=== PATIENT | male | born 1930 | race Caucasian/White ===

== ENCOUNTER 2016-12-23 07:27 | Inpatient (IN) ==
[2016-12-23] MEDS ORDERED: DIPH/TET/ACEL PERT BOOSTER VACCINE 0.5 ML VIAL IM ONE ×2 (07:57→08:20)
[2016-12-23] MEDS ORDERED: SODIUM CHLORIDE 0.9% 500 ML IV STA (07:57)
--- NOTE | 2016-12-23 08:04 | EKG Report ---
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
--- NOTE | 2016-12-23 08:07 | Emergency Department Note ---
Malik Kong Brittany, am scribing for, and in the presence of, Ha Langley MD 07: 59. Korin Kong James D, MD, personally performed the services described in this documentation, ascribed by Tasha Gan in my presence, and it is both accurate and complete 806 . Arrival - Arrival Chief Complaint: Fall Stated Complaint: vomiting,weakness on left side,fell ED Nursing Triage Note: pt's son found him in the floor at 0500 this morning. Pt reports being dizzy before falling. Denies LOC. Skin tear to right elbow. Pt is nauseated but has not been able to vomit. Pt noted to be leaning to right side but using right extremities dominately. Mode of Arrival: Wheelchair Limitations: No Limitations Source: Patient, Family Time Seen by Provider: 12/23/16 07:48 - History of Present Illness HPI Narrative: This is an 86 y/o white male, who presents to the ED S/P fall which happened at 0100 this morning. He states he got up during the night to go to the bathroom and fell. His son reports he found the pt at 0530 this morning. Pt denies hitting his head or LOC. He complains of hip and leg pain. He denies any chest pain, shoulder pain or dyspnea. Pt has no other complaints/pain in the ED at this time. Pt has a PMHx of diabetes. Pt has had a right coronary artery surgery. Pt denies a family medical Hx. Pt denies a social Hx. Consistency: constant Severity: moderate Allergies/Adverse Reactions: Allergies Allergy/AdvReac Type Severity Reaction Status Date / Time No Known Allergies Allergy Verified 12/23/16 07:52 Home Medications: Home Medications Medication Instructions Recorded Confirmed Type Insulin Glargine,Hum.rec.anlog 12/23/16 History [Lantus SoloStar] Verapamil HCl [Verapamil ER Tab] 240 mg PO DAILY 12/23/16 12/23/16 History glipiZIDE [Glipizide] 5 mg PO DAILY 12/23/16 12/23/16 History Review of System - Review of System 12 point system: reviewed and no additional remarkable complaints except as stated - Review of System Cardiovascular: Absent: chest pain, dyspnea on exertion, syncope Musculoskeletal: Present: leg pain (Bilateral leg pain ), other (Bilateral Hip pain ) Medical,Surgical,& Family Hx - Medical History Cardio: History of: Hypertension Endocrine: History of: Diabetes Mellitus (NIDDM) - Social History Smoking Status: Never smoker Frequency of Alcohol Use: None Type of Drug Use: None Exam Vital Signs: Vital Signs Temperature 97.2 F L 12/23/16 08:00 Pulse Rate 80 12/23/16 09:01 Respiratory Rate 13 12/23/16 09:01 Blood Pressure 194/92 12/23/16 09:01 O2 Sat by Pulse Oximetry 98 12/23/16 09:01 GENERAL: This is a well-nourished well-developed white male in no apparent distress. VITAL SIGNS: Reviewed HEENT: Head is atraumatic and normocephalic. Pupils are equal round react to light. Extraocular movements are intact. Oropharynx is benign with moist mucous membranes. NECK: Neck is soft and supple without tenderness. There are no masses. There is no lymphadenopathy. LUNGS: Lungs are clear to auscultation. Chest rises symmetrically. There is no chest wall tenderness. CV: Heart is regular rate and rhythm without murmurs rubs or gallops. ABDOMEN: Abdomen is soft, nontender to palpation. There are no abdominal abnormal masses palpated. There is no organomegaly. Bowel sounds are present and active. SKIN: Skin is warm and dry. No rash. EXTREMITIES: Patient has full range of motion without tenderness. There is no pedal edema. Abrasion of the right elbow. NEUROLOGIC: Awake alert and oriented 4 per Cranial nerves II through XII are grossly intact. Motor is 5 over 5 in all extremities bilaterally. Course Course Narrative: Patient unable to stand or ambulate. - Consultations Consultation #1: Discussed with hospitalist. Patient will be admitted to their service. Time: 10:00 Results - Labs CBC & BMP: 12/23/16 07:56 12/23/16 07:56 Lab Results: I have reviewed the patients labs Labs: Laboratory Tests 12/23/16 07:56 Troponin I < 0.015 - EKG EKG results: interpreted by ERMD - Impressions EKG: Normal sinus rhythm with a rate of 89, right bundle branch block, nonspecific ST-T wave changes. - Diagnostic Findings Procedure: Chest x-ray: image reviewed by me (Elevated left hemidiaphragm.), CT : image reviewed by me (CT head: No acute intracranial lesion or hemorrhage.) Disposition Clinical Impression: Fall, Carotid artery disease Case discussed with: patient, patient's family Disposition: Disch To Home/Self Care Condition: Stable Additional Instructions: Patient is to follow-up with his primary care provider in the next 4-5 days for recheck or sooner with any worsening of symptoms. Patient may return to the emergency department any worsening of symptoms. Time of Disposition: 09:29
[2016-12-23 08:14] LABS: Basophils # 0.1 10*3/uL (0.0-0.2); Basophils % 0.3 % (0.0-0.8); Eosinophils % 0.1 % (0.00-10.9); Hematocrit 36.5 VOL% (42.0-52.0); Hemoglobin 12.1 GM/DL (14.0-18.0); Immature Granulocytes % 0.7 %; Immature Granulocytes Absolute 0.12 #; Lymphocytes % 5.5 % (21.2-54.2); Mean Corpuscular HGB Conc 33.2 GM/DL (32-36); Mean Corpuscular Hemoglobin 33 PG (27-34); Mean Corpuscular Volume 99.7 FL (87-102); Mean Platelet Volume 10.2 FL (9.6-12.0); Monocytes # 0.8 10*3/uL (0.11-0.8); Monocytes % 4.5 % (1.7-12.7); Neutrophils # 15.4 10*3/uL (1.4-7.4); Neutrophils % 88.9 % (38.7-73.9); Platelet Count 279 T/CUMM (130-400); Red Blood Count 3.66 MC/CUMM (3.8-5.5); Red Cell Distribution Width 13.4 % (9.3-17.3); White Blood Count 17.3 T/CUMM (4-12)
--- NOTE | 2016-12-23 08:21 | XRay Report ---
Exam: XR chest 1V portable Date: 12/23/2016 7:57 AM Indication: Shortness of breath Comparison: 10/26/2013 Technical: AP portable Findings: Atelectatic change present and/or infiltrate in the basilar regions bilaterally with chronic elevation left hemidiaphragm. Mild cardiomegaly. Calcified nodes are present in the perihilar regions. ASVD is present. Small granuloma in the left apex. Surgical clips are present in the right thyroid bed. External cardiac leads are present. ASVD present. Lateral marginal osteophytes are noted. Impression: 1. Bibasilar atelectatic change and/or infiltrates with chronic elevation left hemidiaphragm similar to previous study 2. Calcified nodes 3. No pneumothorax. PROCEDURE INTERPRETED AT [facility] DEPARTMENT OF RADIOLOGY Final Report Signed by: Dr. Harry Ellison
--- NOTE | 2016-12-23 08:21 | CT Report ---
Referring physician: Ha Langley Exam: CT brain without contrast Date: 12/23/2016 Comparison: 10/26/2013 Reason: Fall, head injury, left side weakness Technique: Axial images of the head were obtained without the use of contrast. Total DLP was 1073.10 mGy*cm. Findings: No hydrocephalus or midline shift is present. There is no evidence of an acute infarction, recent intracranial hemorrhage or abnormal mass effect. Diffuse atrophy and cerebral hypodensities with chronic left basal ganglia and right frontal chronic lacunar infarcts. Arterial calcifications are noted. The osseous structures appear intact. The mastoid air cells and visualized paranasal sinuses are clear. Impression: No acute intracranial abnormality is identified. Persistent atrophy, microvascular disease, and chronic infarcts. The CT exam was performed using one or more of the following dose reduction techniques: Automated exposure control and adjustment of the mA and/or kV according to patient size. PROCEDURE INTERPRETED AT [facility] DEPARTMENT OF RADIOLOGY Final Report Signed by: Dr. Chikis Barreto
[2016-12-23 08:46] LABS: Albumin 4.1 G/DL (3.4-5.0); Bilirubin,Total 0.5 MG/DL (0.2-1.0); Calcium 9.2 MG/DL (8.5-10.1); Osmolality,Calculated 286.4 MOS/KG (273-304); Potassium 3.9 MMOL/L (3.5-5.1)
[2016-12-23] MEDS ORDERED: ONDANSETRON 4 MG/2 ML VIAL IV STA (10:48)
[2016-12-23] MEDS ORDERED: ONDANSETRON 4 MG/2 ML VIAL ONE (10:50)
--- NOTE | 2016-12-23 11:05 | Hospitalist History & Physical ---
Assessment and Plan - Time spent with patient Time spent with patient: Greater than 30 minutes (1) Right sided weakness Status: Acute Assessment and plan: Mr. Giraldo is an 86-year-old white male with history of diabetes, hypertension, carotid artery disease, and colon cancer admitted by hospitalist service with right-sided weakness. Patient will undergo stroke workup and be evaluated by rehab. Will restart his home medicines for his diabetes and hypertension and continue to monitor these. Dr. Griffith we will see and examine patient and further recommendations to follow. Current Visit: Yes (2) Leukocytosis Status: Acute Current Visit: Yes (3) Carotid artery disease Status: Acute Current Visit: Yes (4) Diabetes Status: Acute Current Visit: Yes (5) Hypertension Status: Acute Current Visit: Yes History of Present Illness Chief complaint: right sided weakness History of present illness: Mr. Giraldo is a 86 year old male w history of right CEA 2-[address] pompa , colon cancer status post resection by Dr. Lujan, htn and dm presenting to the ED w his son w right sided weakness. Patient states he sat on the edge of the bed last night to use the restroom around 1 AM. He states while he was peeing in the urinal he listed to the right side and fell out of the bed. He states he stayed on the floor all night until his son found him at 0530 this morning. Patient complains of right sided leg and arm weakness and blurry vision. Patient states the vision now has returned to normal. Patient denies headache, dysphagia, chest pain, shortness of breath, abdominal pain, or lower extremity edema. Patient has minimal right-sided weakness on manual muscle testing. He does have trouble tracking especially with the left eye. Patient has elevated blood pressure in the ED with current reading 194/92. Patient did not take his medicines this morning. He does have a white blood cell count of 17.3 with no complaints of cough or dysuria. Blood sugars are 209. CT of the head shows no acute intracranial abnormality with persistent atrophy, microvascular disease, and chronic infarcts. Patient was going to be discharged home from the ED but when he went to get up he could not put weight on the right side and almost fell. After discussion with the ED physician Dr. Langley and Dr. Griffith the admitting hospitalist, it was agreed patient would be admitted for further evaluation. Home Medications Medication Instructions Recorded Confirmed Type Insulin Glargine,Hum.rec.anlog 10 units SUBCUT BEDTIME 12/23/16 12/23/16 History [Lantus SoloStar] Multivitamin (Centrum) [Centrum 1 tablet PO DAILY 12/23/16 12/23/16 History Tab] [place]-3 Fatty Acids [Fish Oil] 300 mg PO QAM 12/23/16 12/23/16 History Verapamil HCl [Verapamil ER Tab] 240 mg PO QAM 12/23/16 12/23/16 History glipiZIDE [Glipizide] 5 mg PO QAM 12/23/16 12/23/16 History Allergies Allergy/AdvReac Type Severity Reaction Status Date / Time No Known Allergies Allergy Verified 12/23/16 07:52 Medical,Surgical,& Family Hx - Medical History Cardio: History of: Hypertension Endocrine: History of: Diabetes Mellitus (NIDDM) - Surgical History Abdominal Surgeries: Surgical HX of: Abdominal Surgery - Family History Family History: Reports;: Family Diabetes, Family Heart Disease - Social History Smoking Status: Never smoker Frequency of Alcohol Use: None Type of Drug Use: None Lives With:: Children Functional capacity: independent ambulation Review of systems: Complete 10 system review of systems was obtained and pertinent positives and negatives per HPI Exam - Constitutional Exam: Constitutional System: No distress. No tremulousness. Head: Normocephalic, atraumatic. Ears, Nose and Throat System: No evidence of Otitis or Mastoiditis. No epistaxis or discharge Eyes System: Pupils equal, round, and reactive. Patient has trouble tracking especially on the left Neck: Supple, without adenopathy, No jugular venous distention. No thyromegaly, neck mass, well-healed right CEA scar. Respiratory System: Chest clear to auscultation. Cardiovascular System: Heart with regular rate and rhythm. No murmur. GI System: Abdomen soft, nontender. Normo active bowel sounds present. Musculoskeletal System: limbs with no pedal edema. Full distal pulses. MMT 4/ 5 right, 4+/5 left, poor balance Neurological System: No discernable sensory deficit. No aphasia Psychiatric System: Conversation is rational Results - Labs CBC & BMP: 12/23/16 07:56 12/23/16 07:56 Lab Results: I have reviewed the past 24 hour labs - EKG EKG shows: sinus rhythm - Diagnostic Findings Procedure: Chest x-ray: report reviewed by me (Bibasilar atelectatic change and/ or infiltrates with chronic elevation left hemidiaphragm), CT: report reviewed by me (No acute intracranial abnormality, persistent atrophy, microvascular disease, chronic infarct)
[2016-12-23 12:32] LABS: Risk Ratio 4.54
--- NOTE | 2016-12-23 13:37 | Ultrasound Report ---
Exam: Carotid ultrasound Date: 12/23/2016 Comparison: None Technique: Duplex scans of the carotid and vertebral arteries using B-mode/Huff scale imaging and Doppler spectral analysis and color flow. Reason: Left side weakness, CVA, prior right endarterectomy Findings: The right ICA measures 6.1 mm in diameter and the left ICA measures 6.3 mm in diameter. Color-flow documented in the visualized arteries. The peak systolic velocities are as follows: Right CCA: 76.8 cm/s Right ICA: 72.9 cm/s Right ECA: 87.2 cm/s Left CCA: 72.7 cm/s Left ICA: 120.0 cm/s Left ECA: 80.7 cm/s The peak systolic ICA/CCA velocity ratios are as follows: 0.9 on the right and 1.7 on the left. Antegrade flow is present in both vertebral arteries. Impression:[Less than 50% stenosis in both internal carotid arteries with heterogeneous plaque formation. Antegrade flow in both vertebral arteries.] The Society of Radiologists in Ultrasound consensus conference criteria was used. The Ultrasound images were captured and stored. PROCEDURE INTERPRETED AT [facility] DEPARTMENT OF RADIOLOGY Final Report Signed by: Dr. Chikis Barreto
--- NOTE | 2016-12-23 15:54 | Event Note ---
Patient gone for MRI.
--- NOTE | 2016-12-23 15:59 | Magnetic Resonance Report ---
Exam: MR head/brain wo con Date: 12/23/2016 12:14 PM Comparison: CT brain 12/23/2016 Indication: Right-sided weakness, blurred vision, falls Technique:[Multiple acquisitions were obtained including sagittal T1, coronal T2, and axial ADC, diffusion, FLAIR, T2, GRE, and T1 scans without contrast only. Scans were obtained on an open 1.2 [place]u magnet.] Findings: The ventricles are at the upper limits normal in size with no midline displacement. The pituitary has a normal appearance and the cerebellar tonsils are normal in their location. No evidence of hemorrhage, mass, or extracerebral collection. Diffuse atrophy and FLAIR/T2 hyperintensities. Chronic appearing infarcts in the left frontal, right centrum semiovale ovale/navarro radiata and left basal ganglia location. 5 mm area of restricted diffusion in the right upper medulla/inferior cerebellar peduncle. No acute findings in the paranasal sinuses, orbits, temporal bones, or creek of [place]. Impression: Acute ischemic lacunar infarction in the upper right medulla/inferior cerebellar peduncle. Additional multiple chronic infarcts including left frontal, right centrum ovale/navarro radiata, and left basal ganglia location. Additional atrophy and extensive microvascular disease. T2 hyperintensities can also be associated with demyelinating disease, vasculitis, viral illness, etc. PROCEDURE INTERPRETED AT [facility] DEPARTMENT OF RADIOLOGY Final Report Signed by: Dr. Chikis Barreto
[2016-12-23] MEDS: VERAPAMIL SR 240 MG TABLET PO SCH (16:22)
[2016-12-23] MEDS: glipiZIDE 5 MG TABLET PO SCH (16:23)
[2016-12-23] MEDS: ASPIRIN 325 MG TABLET PO SCH (16:23)
[2016-12-23] MEDS: SODIUM CHLORIDE 0.9% 1,000 ML IV SCH (16:24)
[2016-12-23] MEDS: ONDANSETRON 4 MG/2 ML VIAL IV PRN ×2 (16:31→22:26)
[2016-12-23] MEDS: HEPARIN DRIP 25,000 UNITS/500 ML PREMIX IV SCH (17:12)
[2016-12-23] MEDS: ATORVASTATIN 40 MG TABLET PO SCH (21:21)
[2016-12-24] MEDS: SODIUM CHLORIDE 0.9% 1,000 ML IV SCH ×2 (00:30→09:11)
[2016-12-24 05:14] LABS: Basophils % 0.3 % (0.0-0.8); Eosinophils % 0.3 % (0.00-10.9); Hematocrit 31.7 VOL% (42.0-52.0); Hemoglobin 10.1 GM/DL (14.0-18.0); Immature Granulocytes % 0.7 %; Immature Granulocytes Absolute 0.09 #; Lymphocytes # 1.1 10*3/uL (1.4-4.0); Mean Corpuscular HGB Conc 31.9 GM/DL (32-36); Mean Corpuscular Hemoglobin 32 PG (27-34); Mean Corpuscular Volume 100.6 FL (87-102); Mean Platelet Volume 10.6 FL (9.6-12.0); Monocytes # 0.8 10*3/uL (0.11-0.8); Monocytes % 6.6 % (1.7-12.7); Neutrophils % 83.1 % (38.7-73.9); Platelet Count 221 T/CUMM (130-400); Red Blood Count 3.15 MC/CUMM (3.8-5.5); Red Cell Distribution Width 13.5 % (9.3-17.3); White Blood Count 12.1 T/CUMM (4-12)
[2016-12-24 05:46] LABS: Blood Urea Nitrogen 16 MG/DL (7-18); Glucose 152 MG/DL (74-106); Magnesium 2.3 MG/DL (1.8-2.4); Osmolality,Calculated 284.3 MOS/KG (273-304); Potassium 4.1 MMOL/L (3.5-5.1); Sodium 141 MMOL/L (136-145); Troponin I Only < 0.015 NG/ML (0.00-0.045)
--- NOTE | 2016-12-24 08:58 | EKG Report ---
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
[2016-12-24] MEDS: glipiZIDE 5 MG TABLET PO SCH (09:09)
[2016-12-24] MEDS: VERAPAMIL SR 240 MG TABLET PO SCH (09:09)
[2016-12-24] MEDS: ASPIRIN 325 MG TABLET PO SCH (09:13)
--- NOTE | 2016-12-24 12:20 | Hospitalist Progress Note ---
Assessment and Plan (1) Right sided weakness Status: Acute Assessment and plan: The patient's stroke appears to be in the right mid to lower and cerebellum. Carotid studies reveal less than 50% stenosis. The patient continues on heparin infusion for now and we await Dr. David Wang's consultation. We will start evaluating the patient for rehabilitation. I coordinate care with director case today. Current Visit: Yes (2) Hypertension Status: Acute Current Visit: Yes Hospitalist: Subjective Interval history: The patient is resting quietly in bed today. He has no new complaints. The patient is handling secretions well but is reluctant to eat due to dysphagia. The patient took about half of his usual meal. Speech therapy did not did not demonstrate any abnormalities on their bedside evaluation. Exam - Constitutional Vitals: Period Temp Pulse Resp BP Sys/Dillard Pulse Ox Last 24 Hr 96.1 F-98.6 F 57-91 18-20 165-215/75-98 94-98 - Respiratory Respiratory exam: Present: clear to auscultation bilaterally - Cardiovascular Cardiovascular exam: Present: regular rate and rhythm - GI/Abdominal GI/Abdominal exam: Present: normal bowel sounds Results - Labs CBC & BMP: 12/24/16 04:29 12/24/16 04:29 Lab Results: I have reviewed the past 24 hour labs - Impressions MRI scan reveals stroke in the posterior circulation. Quality Measures - VTE Contraindication to Pharmacological VTE Prophylaxis: Already on Theraputic Agent , No Prophylaxis Needed - Stroke Contraindication No Antithrombotic By Day Two: Advanced Age
[2016-12-24] MEDS: LISINOPRIL 10 MG TABLET PO SCH (12:29)
[2016-12-24] MEDS: ONDANSETRON 4 MG/2 ML VIAL IV PRN (15:02)
--- NOTE | 2016-12-24 16:05 | Neurology Consult Note ---
History of Present Illness History of present illness: Mr. Giraldo is a 86 year old right-handed white gentleman with past medical history of right CEA 2-[address] pompa, colon cancer status post resection by Dr. Lujan, hypertension and diabetes mellitus presenting to the ED with right sided weakness. Patient states he sat on the edge of the bed to use the restroom around 1 AM. He states while he was peeing in the urinal he drifted to the right side and fell out of the bed. He states he stayed on the floor all night until his son found him at 0530 this morning. Patient complains of right sided leg and arm weakness and blurry vision. Patient states the vision now has returned to normal. Patient denies headache, dysphagia, chest pain, shortness of breath, abdominal pain, or lower extremity edema. Patient has elevated blood pressure in the ED with current reading 194/ 92. CT of the head shows no acute intracranial abnormality with persistent atrophy, microvascular disease, and chronic infarcts. MRI of the brain revealed right upper medullary/inferior cerebellar acute infarct. Carotid ultrasound is unremarkable. Lipid profile is abnormal and Lipitor has been added Home Medications Medication Instructions Recorded Confirmed Type Insulin Glargine,Hum.rec.anlog 10 units SUBCUT BEDTIME 12/23/16 12/23/16 History [Lantus SoloStar] Multivitamin (Centrum) [Centrum 1 tablet PO DAILY 12/23/16 12/23/16 History Tab] [place]-3 Fatty Acids [Fish Oil] 300 mg PO QAM 12/23/16 12/23/16 History Verapamil HCl [Verapamil ER Tab] 240 mg PO QAM 12/23/16 12/23/16 History glipiZIDE [Glipizide] 5 mg PO QAM 12/23/16 12/23/16 History Allergies Allergy/AdvReac Type Severity Reaction Status Date / Time No Known Allergies Allergy Verified 12/23/16 07:52 12 point system: reviewed and no additional remarkable complaints except as stated Medical,Surgical,& Family Hx - Medical History Cardio: History of: Hypertension Endocrine: History of: Diabetes Mellitus (NIDDM) - Surgical History Abdominal Surgeries: Surgical HX of: Abdominal Surgery - Family History Family History: Reports;: Family Diabetes, Family Heart Disease - Social History Smoking Status: Never smoker Frequency of Alcohol Use: None Type of Drug Use: None Exam - Constitutional Vitals: Period Temp Pulse Resp BP Sys/Dillard Pulse Ox Last 24 Hr 96.1 F-98.2 F 57-77 16-20 165-210/75-93 93-97 Exam: GENERAL: Patient is in no acute distress. NECK: Neck is supple. There is no JVD. No carotid bruits present. No thyroid masses. CVS: First and second heart sounds are normal. There is no S3 present. Regular rate and rhythm. RESPIRATORY: Lungs are clear to auscultation without any rales or rhonchi. ABDOMEN: Soft and non-tender. Bowel sounds are present. There is no hepatosplenomegaly. EXT: There is no palpable edema. Peripheral pulses are present. Skin: No rashes Central Nervous system: General: Alert, awake and Oriented x 3 Speech: Fluent Comprehension: Intact and normal Facial expressions: Normal Cranial Nerves: CN1/Olfactory: Normal CN II/ Optic: Normal, Visual Gardner unreliable CN III, and : ROCCO & EOMI CN V: Normal & intact CN VII: face is symmetric CNVIII: Normal CN XI/X/XI/XII: Intact and Normal Motor: Bulk and Tone is normal. Strength in the right 5/5 Strength in the left 3-4/5 Sensory: Grossly intact for all the modalities of PP, LT and temp sense Reflexes: 1+ and symmetrical Cerebellar function: Normal finger to nose and heel to arellano testing. Toes: Equivocal Gait: Ataxic gait however having marked difficulty in getting up Results - Labs CBC & BMP: 12/24/16 04:29 12/24/16 04:29 Assessment and Plan (1) Brainstem infarct, acute Status: Acute Assessment and plan: Continue aspirin a day Add Plavix 75 mg daily Continue PT and OT Echocardiogram Consult TMR Current Visit: Yes
--- NOTE | 2016-12-24 16:19 | Consultation ---
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 I feel this is best treated with speech therapy to help augment and coordinate his speaking. I do not recommend any acute otolaryngologic interventions at this time but this continues is more of a chronic issue he may benefit from bilateral vocal fold augmentation that would require less breath support to help produce phonation. If the patient and his family desires would be more than happy to follow up with him as an outpatient in the future. Thank you very much for this consult I will sign off in this case by remain available if there is any questions or concerns. Current Visit: Yes (2) Shallow breathing Status: Acute Current Visit: Yes (3) Brainstem infarct, acute Status: Acute Current Visit: Yes History of Present Illness - Data of Consult Patient: new to practice Consult date: 12/24/16 Requesting Physician: Edgar Griffith - Consult Narrative Reason for consult: dysphonia History of present illness: Mr. Giraldo is a 86 year old male with recent brainstem infarct/CVA and intermittent dysphonia that is breathy in character ENT is consulted for speech pathology recommendation to evaluate and offer recommendations. The patient notes nothing makes it better or worse and feels that over the last 5 days it has progressively increased in frequency and severity. CC: Edgar Griffith MD - Home Medications and Allergies Home Medications: Home Medications Medication Instructions Recorded Confirmed Type Insulin Glargine,Hum.rec.anlog 10 units SUBCUT BEDTIME 12/23/16 12/23/16 History [Lantus SoloStar] Multivitamin (Centrum) [Centrum 1 tablet PO DAILY 12/23/16 12/23/16 History Tab] [place]-3 Fatty Acids [Fish Oil] 300 mg PO QAM 12/23/16 12/23/16 History Verapamil HCl [Verapamil ER Tab] 240 mg PO QAM 12/23/16 12/23/16 History glipiZIDE [Glipizide] 5 mg PO QAM 12/23/16 12/23/16 History Allergies/Adverse Reactions: Allergies Allergy/AdvReac Type Severity Reaction Status Date / Time No Known Allergies Allergy Verified 12/23/16 07:52 12 point system: reviewed and no additional remarkable complaints except as stated Medical,Surgical,& Family Hx - Medical History Cardio: History of: Hypertension Endocrine: History of: Diabetes Mellitus (NIDDM) - Surgical History Abdominal Surgeries: Surgical HX of: Abdominal Surgery - Family History Family History: Reports;: Family Diabetes, Family Heart Disease - Social History Smoking Status: Never smoker Frequency of Alcohol Use: None Type of Drug Use: None Exam - Constitutional Vitals: Period Temp Pulse Resp BP Sys/Dillard Pulse Ox Last 24 Hr 96.1 F-98.2 F 57-77 16-20 165-210/75-93 93-97 General appearance: normal weight, no acute distress - Head Head exam: Present: normal inspection, normocephalic - Eye Eye exam: Present: EOMI Pupils: Present: ROCCO - ENT ENT exam: Present: normal exam, normal external ear exam, normal oropharynx, other (Bedside laryngoscopy reveals bilateral vocal fold movement with good upper airway articulation and movement.) - Neck Neck exam: Present: normal inspection - Respiratory Respiratory exam: Present: other (Overall I would say poor breath support and coordination during phonation) - GI/Abdominal GI/Abdominal exam: Present: soft (No gross lesions or masses) - Extremities Exam Extremities exam: Present: normal inspection, normal capillary refill - Neurological Exam Neurological exam: Present: alert, oriented X3, CN II-XII intact, other (Please see neurology consult) - Psychiatric Psychiatric exam: Present: normal affect, normal mood - Skin Skin exam: Present: normal color, warm Results - Labs CBC & BMP: 12/24/16 04:29 12/24/16 04:29 Lab Results: I have reviewed the past 24 hour labs Quality Measures - VTE Contraindication to Pharmacological VTE Prophylaxis: Already on Theraputic Agent , No Prophylaxis Needed - Stroke Contraindication No Antithrombotic By Day Two: Advanced Age
[2016-12-24] MEDS: HEPARIN DRIP 25,000 UNITS/500 ML PREMIX IV SCH (16:23)
--- NOTE | 2016-12-24 16:53 | ECHO Report ---
Chance Giraldo Exam Date: 12/24/2016 08:54 Referring Physician: Technologist: Heidy Haney Age: 86 Ht (in): 72 Wt (lb): 180 Gender: M Exam Location: [facility] Echo Indications: HTN, weakness, CAD, Rt. sided weakness, diabetes BP: 165 / 85 HR: 67 Rhythm: Technical Quality: IMPRESSIONS EF 55%. Inferobasal hypokinesis. Grade I/IV diastolic dysfunction (abnormal relaxation filling pattern), normal to mildly elevated filling pressures. Mildly increased right ventricular size. The right atrium is mildly enlarged. Moderately increased left atrial size. Mildly thickened mitral valve. Trace mitral valve regurgitation. Aortic valve sclerosis. Trace aortic valve regurgitation. Morphologically normal tricuspid valve. PAP40 mmHg. Pulmonic valve not well visualized. No pericardial effusion. Normal size aortic root and proximal ascending aorta. MEASUREMENTS (Male / Female) Normal Values 2D ECHO LV Diastolic Diameter PLAX 4.1 cm 4.2 - 5.9 / 3.9 - 5.3 cm LV Systolic Diameter PLAX 2.7 cm LV Fractional Shortening PLAX 35.0 % IVS Diastolic Thickness 1.7 cm 0.6 - 1.0 / 0.6 - 0.9 cm LVPW Diastolic Thickness 1.4 cm 0.6 - 1.0 / 0.6 - 0.9 cm RV Internal Dim ED PLAX 2.8 cm Aortic Root Diameter 3.5 cm LA Systolic Diameter LX 3.7 cm 3.0 - 4.0 / 2.7 - 3.8 cm DOPPLER TR Peak Velocity 267.0 cm/s TR Peak Gradient 28.5 mmHg FINDINGS Left Ventricle EF 55%. inferobasal hypokinesis.Grade I/IV diastolic dysfunction (abnormal relaxation filling pattern), normal to mildly elevated filling pressures. Right Ventricle Mildly increased right ventricular size. Right Atrium The right atrium is mildly enlarged. Left Atrium Moderately increased left atrial size. Mitral Valve Mildly thickened mitral valve. Trace mitral valve regurgitation. Aortic Valve Aortic valve sclerosis. Trace aortic valve regurgitation. Tricuspid Valve Mild tricuspid valve regurgitation. Morphologically normal tricuspid valve.PAP40 mmHg. Pulmonic Valve Pulmonic valve not well visualized. Pericardium No pericardial effusion. Aorta Normal size aortic root and proximal ascending aorta. Delbert Adria (Electronically Signed) Final Date: 24 Dec 2016 16:52
[2016-12-24] MEDS: ATORVASTATIN 40 MG TABLET PO SCH (21:06)
[2016-12-25 03:28] LABS: Basophils # 0.1 10*3/uL (0.0-0.2); Basophils % 0.5 % (0.0-0.8); Eosinophils # 0.2 10*3/uL (0.0-0.87); Eosinophils % 2.6 % (0.00-10.9); Hematocrit 30.9 VOL% (42.0-52.0); Immature Granulocytes % 0.4 %; Immature Granulocytes Absolute 0.04 #; Lymphocytes # 1.8 10*3/uL (1.4-4.0); Mean Corpuscular HGB Conc 32.4 GM/DL (32-36); Mean Corpuscular Hemoglobin 33 PG (27-34); Mean Corpuscular Volume 100.7 FL (87-102); Mean Platelet Volume 10.1 FL (9.6-12.0); Monocytes # 0.8 10*3/uL (0.11-0.8); Monocytes % 8.5 % (1.7-12.7); Neutrophils # 6.3 10*3/uL (1.4-7.4); Platelet Count 212 T/CUMM (130-400); Red Blood Count 3.07 MC/CUMM (3.8-5.5); Red Cell Distribution Width 13.4 % (9.3-17.3); White Blood Count 9.2 T/CUMM (4-12)
[2016-12-25 04:18] LABS: Calcium 8.6 MG/DL (8.5-10.1); Magnesium 2.1 MG/DL (1.8-2.4); Osmolality,Calculated 286.8 MOS/KG (273-304); Potassium 3.7 MMOL/L (3.5-5.1)
[2016-12-25 08:28] VITALS: BP 182/74
--- NOTE | 2016-12-25 08:59 | Discharge Summary ---
Hospital Course - Hospital Course Hospital Course: The patient was admitted to the hospital with dysmetric gait and right leg greater than arm weakness. The patient was found to have infarction of the left cerebellar peduncle on MRI scan the day after admission. The patient's echocardiogram and carotid Doppler studies revealed no abnormalities. The patient had no cardiac arrhythmia on telemetry monitoring. The patient had physical therapy occupational therapy and speech therapy evaluations. The patient had a consultation with Dr. David Wang. The patient was initially treated with heparin infusion and we may transition to aspirin and Plavix at Dr. David Wang's recommendation. The speech therapist recommended ear nose and throat evaluation and Dr. herrera inspected the airways and found no abnormality of the vocal cords or swallowing mechanism. The patient has reached maximum medical benefit of hospitalization and is ready for transfer to [facility] rehab. On the date of discharge, chest is clear, heart has regular rate and rhythm and abdomen soft. The patient is enthusiastic about transfer. Discharge arrangements, coordination with the top case assembler, and instructions to the patient required 38 minutes. - Time spent with patient Time with patient DS: Greater than 30 minutes Diagnosis - Discharge Diagnosis (1) Right sided weakness Status: Acute (2) Hypertension Status: Chronic Specialty Discharge - Follow Up or Referrals Discharge Plan - Discharge Data Disposition: Disch/er- Rehab Fac Condition at Discharge: Stable Discharge Diet: heart healthy Activity: as per physical therapy - Discharge Medications New Atorvastatin [Lipitor] 80 mg PO BEDTIME tablet Clopidogrel [Plavix] 75 mg PO DAILY tablet Lisinopril [Prinivil] 10 mg PO DAILY tablet Aspirin Tab 325 mg PO DAILY tablet Continue Verapamil HCl [Verapamil ER Tab] 240 mg PO QAM glipiZIDE [Glipizide] 5 mg PO QAM Multivitamin (Centrum) [Centrum Tab] 1 tablet PO DAILY [place]-3 Fatty Acids [Fish Oil] 300 mg PO QAM Discontinued Insulin Glargine,Hum.rec.anlog [Lantus SoloStar] 10 units SUBCUT BEDTIME - Follow Up or Referral - Forms/Instructions Instructions: Ischemic Stroke (DC) Exam - Constitutional Vitals: Period Temp Pulse Resp BP Sys/Dillard Pulse Ox Last 24 Hr 97.0 F-98.1 F 53-99 16-21 146-210/64-85 96-100 Discharge Results Labs on day of discharge: Labs from last 24 hours 12/25/16 12/25/16 12/25/16 07:38 03:13 03:13 WBC 9.2 RBC 3.07 L Hgb 10.0 L Hct 30.9 L MCV 100.7 MCH 33 MCHC 32.4 RDW 13.4 Plt Count 212 MPV 10.1 Neut % (Auto) 69.0 Lymph % (Auto) 19.0 L [place] % (Auto) 8.5 Eos % (Auto) 2.6 Baso % (Auto) 0.5 Neut # (Auto) 6.3 Lymph # (Auto) 1.8 [place] # (Auto) 0.8 Eos # (Auto) 0.2 Baso # (Auto) 0.1 Immature Gran % 0.4 Nucleated RBC % 0.0 Immature Gran # 0.04 Nucleated RBCs # 0.00 Circ Anticoag PTT Sodium 144 Potassium 3.7 Chloride 106 Carbon Dioxide 29 Anion Gap 12.7 BUN 19 H Creatinine 0.90 GFR Calculation 91 BUN/Creatinine Ratio 21.00 H Glucose 76 POC Glucose 152 H Calculated Osmolality 286.8 Calcium 8.6 Magnesium 2.1 12/24/16 12/24/16 12/24/16 19:52 18:18 11:49 WBC RBC Hgb Hct MCV MCH MCHC RDW Plt Count MPV Neut % (Auto) Lymph % (Auto) [place] % (Auto) Eos % (Auto) Baso % (Auto) Neut # (Auto) Lymph # (Auto) [place] # (Auto) Eos # (Auto) Baso # (Auto) Immature Gran % Nucleated RBC % Immature Gran # Nucleated RBCs # Circ Anticoag PTT 47.9 H D 69.0 H Sodium Potassium Chloride Carbon Dioxide Anion Gap BUN Creatinine GFR Calculation BUN/Creatinine Ratio Glucose POC Glucose 104 Calculated Osmolality Calcium Magnesium DS: Provider Date of admission: 12/23/16 10:17 Primary care physician: . No PCP Attending physician on admission: Edgar Griffith MD Consults: 12/23/16 12:14 Consult to Case Mgmt/Social Srvs [CONS] Routine Reason for Case Mgmt/Social Srvs: Discharge Planning Consult to Occupational Therapy [CONS] Routine Reason for Occupational Therapy: Evaluate and Treat Consult Comment: Stroke Consult to Occupational Therapy [CONS] Routine Reason for Occupational Therapy: Evaluate and Treat Consult Comment: stroke Consult to Physical Therapy [CONS] Routine Reason for Physical Therapy: Evaluate and Treat Consult Comment: stroke Consult to Physician [CONS] Routine Comment: right sided weakness Consulting Provider: Tomasz Rojas Consulting Provider Notified: Yes When should Consulting Provider be notified: Now Consult to Specialist Group: Neurology When should Consulting Provider be notified: Now Person Notified: LUIS Date Notified: 12/23/16 Time Notified: 15:52 12/24/16 12:11 Consult to Physician [CONS] Routine Comment: soft voice that comes and goes/passed speech eval Consulting Provider: Teodoro Ramirez Consulting Provider Notified: Yes When should Consulting Provider be notified: Now Consult to Specialist Group: ENT When should Consulting Provider be notified: Now Person Notified: SULEMAN Date Notified: 12/24/16 Time Notified: 13:17 Discharging clinician: Edgar Griffith MD
[2016-12-25] MEDS ORDERED: CLOPIDOGREL 75 MG TABLET PO SCH (09:00)
[2016-12-25] MEDS: VERAPAMIL SR 240 MG TABLET PO SCH (09:23)
[2016-12-25] MEDS: LISINOPRIL 10 MG TABLET PO SCH (09:23)
[2016-12-25] MEDS: glipiZIDE 5 MG TABLET PO SCH (09:23)
[2016-12-25] MEDS: ASPIRIN 325 MG TABLET PO SCH (09:25)
== END 2016-12-25 11:09 | DRG 65 ==
LOC: N.ED 07:27 → N.EDINP 10:17 → N.4E 12:20
PROVIDERS: ADMIT Internal Medicine; ATTEND Internal Medicine

== ENCOUNTER 2019-04-17 08:27 | Inpatient (IN) ==
[2019-04-17] MEDS ORDERED: SODIUM CHLORIDE 0.9% 1,000 ML IV STA ×2 (08:34→10:27)
[2019-04-17 09:19] LABS: Basophils % 0.2 % (0.0-0.8); Hematocrit 23.5 VOL% (42.0-52.0); Hemoglobin 6.6 GM/DL (14.0-18.0); Immature Granulocytes % 0.7 %; Immature Granulocytes Absolute 0.13 #; Lymphocytes # 0.9 10*3/uL (1.4-4.0); Mean Corpuscular HGB Conc 28.1 GM/DL (32-36); Mean Corpuscular Volume 114.1 FL (87-102); Mean Platelet Volume 10.5 FL (9.6-12.0); NRBC # 0.06 10*3/uL; Neutrophils % 90.1 % (38.7-73.9); Platelet Count 338 T/CUMM (130-400); Red Blood Count 2.06 MC/CUMM (3.8-5.5); Red Cell Distribution Width 16.2 % (9.3-17.3); White Blood Count 18.3 T/CUMM (4-12)
[2019-04-17 09:27] LABS: INR 1.1; PT Patient Result 11.4 SECS (9.6-12.2)
[2019-04-17 09:38] LABS: Albumin 2.7 G/DL (3.4-5.0); Bilirubin,Total 0.5 MG/DL (0.2-1.0); CKMB % 0.6 %; Calcium 8.4 MG/DL (8.5-10.1); Osmolality,Calculated 330.4 MOS/KG (273-304); Total Protein 6.2 G/DL (6.4-8.3)
[2019-04-17 09:40] LABS: Anisocytosis 1+; Hypochromasia 1+; Microcytosis 1+
[2019-04-17 09:41] LABS: Polychromasia Slight; Troponin I 3.78 NG/ML (0.00-0.045)
[2019-04-17 09:41] LABS: Apearance,Urine CLEAR (Clear); Bilirubin,Urine Negative (Negative); Blood, Urine Small mg/dL (Negative); Glucose,Urine (UA) 50 mg/dL (Negative); Hyaline Casts,Urine 1 /LPF (0-3); Ketones,Urine 20 mg/dL (Negative); Nitrite,Urine Negative (Negative); Protein,Urine Negative; RBC,Urine 19 /HPF (0-4); Urine Color Yellow (Yellow); Urine Specific Gravity 1.019 (1.001-1.035); Urine Urobilinogen < 2.0 EU/DL (0.2-1.0); WBC,Urine 1 /HPF (0-6)
[2019-04-17] MEDS ORDERED: PIPERACILLIN/TAZOBACTAM 3,375 MG in SODIUM CHLORIDE 0.9% 100 ML IV STA (10:20)
[2019-04-17] MEDS ORDERED: VANCOMYCIN INJ 1,000 MG in SODIUM CHLORIDE 0.9% 250 ML IV STA (10:20)
[2019-04-17] MEDS ORDERED: SODIUM CHLORIDE 0.9% 1,000 ML IV PRN ×2 (10:27→13:09)
[2019-04-17] MEDS ORDERED: DEXTROSE 50% 25 GM/50 ML VIAL IV PRN (10:42)
[2019-04-17] MEDS ORDERED: GLUCAGON 1 MG VIAL IM PRN (10:42)
[2019-04-17] MEDS ORDERED: ACETAMINOPHEN 325 MG TABLET PO PRN (10:59)
[2019-04-17] MEDS ORDERED: ONDANSETRON 4 MG/2 ML VIAL IV PRN (10:59)
[2019-04-17] MEDS: SODIUM CHLORIDE 0.9% 1,000 ML IV SCH (13:00)
[2019-04-17] MEDS ORDERED: ALBUTEROL/IPRATROPIUM 3 ML NEB RESP TX PRN (14:21)
[2019-04-17] MEDS: ALBUTEROL/IPRATROPIUM 3 ML NEB RESP TX SCH ×2 (14:49→20:27)
[2019-04-17 15:02] LABS: CKMB % 0.7 %
[2019-04-17 15:04] LABS: Troponin I 3.43 NG/ML (0.00-0.045)
[2019-04-17 15:36] LABS: Albumin 2.5 G/DL (3.4-5.0); Calcium 7.8 MG/DL (8.5-10.1); Osmolality,Calculated 330.4 MOS/KG (273-304); Total Protein 5.7 G/DL (6.4-8.3)
[2019-04-17] MEDS ORDERED: SKIN HEALING OINT (AQUAPHOR) 50 GM TUBE TOP PRN (15:45)
[2019-04-17] MEDS ORDERED: ZIPRASIDONE 20 MG/1 ML VIAL IM PRN (16:30)
[2019-04-17 17:21] LABS: % Iron Saturation 15.1 % (18-50); Ferritin 23.2 ng/ml (26-388)
[2019-04-17 17:34] LABS: Folate 18.9 NG/ML (5.4-24.0)
[2019-04-17] MEDS: INSULIN LISPRO 100 UNIT/ML SUBCUT SCH ×3 (17:53→20:37)
[2019-04-17 19:24] LABS: Basophils % 0.1 % (0.0-0.8); Hematocrit 28.2 VOL% (42.0-52.0); Immature Granulocytes % 0.7 %; Immature Granulocytes Absolute 0.13 #; Lymphocytes # 0.5 10*3/uL (1.4-4.0); Lymphocytes % 2.9 % (21.2-54.2); Mean Corpuscular HGB Conc 30.9 GM/DL (32-36); Mean Corpuscular Volume 102.9 FL (87-102); Mean Platelet Volume 10.3 FL (9.6-12.0); Monocytes % 3.6 % (1.7-12.7); NRBC # 0.07 10*3/uL; Neutrophils % 92.7 % (38.7-73.9); Platelet Count 271 T/CUMM (130-400); Red Cell Distribution Width 20.5 % (9.3-17.3); White Blood Count 18.2 T/CUMM (4-12)
[2019-04-17 19:27] LABS: Hemoglobin 8.7 GM/DL (14.0-18.0); Red Blood Count 2.74 MC/CUMM (3.8-5.5)
[2019-04-17 20:15] LABS: Anisocytosis 2+; Lymphocytes 7 % (20-55); Macrocytosis 2+; Platelet Estimate Normal; Polychromasia 1+; Reactive Lymphocytes Slight; Segmented Neutrophils 92 % (50-85); Total Cells Counted 100
[2019-04-17] MEDS: PIPERACILLIN/TAZOBACTAM 3,375 MG in SODIUM CHLORIDE 0.9% 100 ML IV SCH (20:15)
[2019-04-17] MEDS: METOPROLOL TARTRATE 25 MG TABLET PO SCH (20:37)
[2019-04-17] MEDS: ATORVASTATIN 80 MG TABLET PO SCH (20:37)
[2019-04-17] MEDS: DOCUSATE SODIUM 100 MG CAPSULE PO SCH (20:37)
[2019-04-18] MEDS: ALBUTEROL/IPRATROPIUM 3 ML NEB RESP TX SCH ×7 (00:37→23:30)
[2019-04-18] MEDS: SODIUM CHLORIDE 0.9% 1,000 ML IV SCH ×2 (02:21→07:41)
[2019-04-18] MEDS: PIPERACILLIN/TAZOBACTAM 3,375 MG in SODIUM CHLORIDE 0.9% 100 ML IV SCH ×3 (04:13→23:04)
[2019-04-18 04:24] LABS: Basophils % 0.1 % (0.0-0.8); Hematocrit 29.3 VOL% (42.0-52.0); Hemoglobin 8.3 GM/DL (14.0-18.0); Immature Granulocytes % 0.7 %; Immature Granulocytes Absolute 0.14 #; Lymphocytes # 0.5 10*3/uL (1.4-4.0); Lymphocytes % 2.5 % (21.2-54.2); Mean Corpuscular HGB Conc 28.3 GM/DL (32-36); Mean Corpuscular Volume 111.8 FL (87-102); Mean Platelet Volume 11.1 FL (9.6-12.0); NRBC # 0.08 10*3/uL; Neutrophils % 90.7 % (38.7-73.9); Platelet Count 192 T/CUMM (130-400); Red Blood Count 2.62 MC/CUMM (3.8-5.5); Red Cell Distribution Width 21.5 % (9.3-17.3)
[2019-04-18 04:53] LABS: Band Neutrophils 5 % (0-10); Lymphocytes 4 % (20-55); Platelet Estimate Normal; Segmented Neutrophils 86 % (50-85); Total Cells Counted 100
[2019-04-18 05:53] LABS: Alanine Aminotransferase 74 U/L (16-61); Alkaline Phosphatase 89 U/L (45-117); Aspartate Amino Transferase 64 U/L (0-37)
[2019-04-18 05:54] LABS: Albumin 2.5 G/DL (3.4-5.0); Bilirubin,Total 0.61 MG/DL (0.2-1.0); Blood Urea Nitrogen 50 MG/DL (7-18); Glucose 89 MG/DL (74-106); Total Protein 5.6 G/DL (6.4-8.3)
[2019-04-18] MEDS ORDERED: CLOPIDOGREL 75 MG TABLET PO SCH (09:00)
[2019-04-18] MEDS ORDERED: ASPIRIN 325 MG TABLET PO SCH (09:00)
[2019-04-18] MEDS: METOPROLOL TARTRATE 25 MG TABLET PO SCH ×2 (09:52→22:07)
[2019-04-18] MEDS: INSULIN LISPRO 100 UNIT/ML SUBCUT SCH ×4 (09:52→22:07)
[2019-04-18] MEDS: ASPIRIN EC 81 MG TABLET PO SCH (09:52)
[2019-04-18] MEDS: DOCUSATE SODIUM 100 MG CAPSULE PO SCH ×2 (09:52→23:05)
[2019-04-18] MEDS: PANTOPRAZOLE 40 MG TABLET PO SCH (09:53)
[2019-04-18] MEDS: VANCOMYCIN INJ 750 MG in SODIUM CHLORIDE 0.9% 250 ML IV SCH (09:54)
[2019-04-18] MEDS: SODIUM CHLORIDE 0.45% 1,000 ML IV SCH ×2 (10:30→18:55)
[2019-04-18 15:54] LABS: Calcium 7.5 MG/DL (8.5-10.1)
[2019-04-18] MEDS: ATORVASTATIN 80 MG TABLET PO SCH (23:05)
[2019-04-19] MEDS: ALBUTEROL/IPRATROPIUM 3 ML NEB RESP TX SCH ×4 (02:26→20:49)
[2019-04-19] MEDS: SODIUM CHLORIDE 0.45% 1,000 ML IV SCH ×3 (03:00→18:29)
[2019-04-19 04:29] LABS: Basophils % 0.1 % (0.0-0.8); Eosinophils % 0.1 % (0.00-10.9); Hematocrit 22.2 VOL% (42.0-52.0); Hemoglobin 6.6 GM/DL (14.0-18.0); Immature Granulocytes % 0.4 %; Immature Granulocytes Absolute 0.06 #; Lymphocytes # 0.9 10*3/uL (1.4-4.0); Mean Corpuscular HGB Conc 29.7 GM/DL (32-36); Mean Corpuscular Volume 102.8 FL (87-102); Mean Platelet Volume 10.8 FL (9.6-12.0); Monocytes % 5.5 % (1.7-12.7); NRBC # 0.05 10*3/uL; Neutrophils % 87.9 % (38.7-73.9); Platelet Count 184 T/CUMM (130-400); Red Blood Count 2.16 MC/CUMM (3.8-5.5); Red Cell Distribution Width 19.7 % (9.3-17.3); White Blood Count 14.9 T/CUMM (4-12)
[2019-04-19 04:52] LABS: Albumin 2.1 G/DL (3.4-5.0); Bilirubin,Total 0.9 MG/DL (0.2-1.0); Calcium 7.4 MG/DL (8.5-10.1); Osmolality,Calculated 321.4 MOS/KG (273-304); Total Protein 4.8 G/DL (6.4-8.3)
[2019-04-19] MEDS ORDERED: SODIUM CHLORIDE 0.9% 1,000 ML IV PRN (06:15)
[2019-04-19] MEDS ORDERED: FUROSEMIDE 20 MG/2 ML VIAL IV ONE (08:00)
[2019-04-19] MEDS: INSULIN LISPRO 100 UNIT/ML SUBCUT SCH ×4 (09:14→20:49)
[2019-04-19] MEDS: DOCUSATE SODIUM 100 MG CAPSULE PO SCH ×2 (09:14→21:05)
[2019-04-19] MEDS: ASPIRIN EC 81 MG TABLET PO SCH (09:14)
[2019-04-19] MEDS: PIPERACILLIN/TAZOBACTAM 3,375 MG in SODIUM CHLORIDE 0.9% 100 ML IV SCH ×2 (09:14→17:11)
[2019-04-19] MEDS: PANTOPRAZOLE 40 MG TABLET PO SCH (09:14)
[2019-04-19] MEDS: METOPROLOL TARTRATE 25 MG TABLET PO SCH ×2 (09:15→21:05)
[2019-04-19] MEDS: VANCOMYCIN INJ 750 MG in SODIUM CHLORIDE 0.9% 250 ML IV SCH (12:20)
[2019-04-19 14:02] LABS: Hematocrit 28.8 VOL% (42.0-52.0)
[2019-04-19] MEDS: ATORVASTATIN 80 MG TABLET PO SCH (21:05)
[2019-04-20] MEDS: PIPERACILLIN/TAZOBACTAM 3,375 MG in SODIUM CHLORIDE 0.9% 100 ML IV SCH ×3 (00:23→18:24)
[2019-04-20] MEDS: ALBUTEROL/IPRATROPIUM 3 ML NEB RESP TX SCH ×8 (00:23→23:45)
[2019-04-20 05:41] LABS: Calcium 7.2 MG/DL (8.5-10.1); Osmolality,Calculated 318.6 MOS/KG (273-304)
[2019-04-20] MEDS ORDERED: SODIUM CHLORIDE 0.45% 1,000 ML IV ONE ×2 (07:55→09:01)
[2019-04-20] MEDS: SODIUM CHLORIDE 0.45% 1,000 ML IV SCH ×2 (10:00→18:45)
[2019-04-20 10:31] LABS: Hematocrit 18.5 VOL% (42.0-52.0)
[2019-04-20 10:48] LABS: Hemoglobin 5.6 GM/DL (14.0-18.0)
[2019-04-20] MEDS: VANCOMYCIN INJ 750 MG in SODIUM CHLORIDE 0.9% 250 ML IV SCH (14:01)
[2019-04-20] MEDS ORDERED: SODIUM CHLORIDE 0.9% 1,000 ML IV PRN (14:20)
[2019-04-20] MEDS ORDERED: LACTATED RINGERS 500 ML IV SCH (14:30)
[2019-04-20] MEDS ORDERED: PHENYLEPHRINE DRIP 20 MG/250 ML PREMIX IV ONE (15:16)
[2019-04-20] MEDS ORDERED: EPINEPHrine 1 MG/ML VIAL ONE (15:16)
[2019-04-20 15:45] LABS: Hematocrit 19.6 VOL% (42.0-52.0)
[2019-04-20] MEDS: INSULIN LISPRO 100 UNIT/ML SUBCUT SCH ×4 (16:01→21:37)
[2019-04-20] MEDS ORDERED: LIDOCAINE 2% 5 ML VIAL ONE (17:20)
[2019-04-20] MEDS ORDERED: KETAMINE 500 MG/10 ML VIAL ONE (17:21)
[2019-04-20] MEDS ORDERED: ETOMIDATE 40 MG/20 ML VIAL IV ONE (17:21)
[2019-04-20] MEDS ORDERED: PHENYLEPHRINE 1 MG/10 ML SYRINGE IV ONE (17:21)
[2019-04-20] MEDS ORDERED: SUCCINYLCHOLINE 200 MG/10 ML VIAL ONE (17:21)
[2019-04-20] MEDS: PANTOPRAZOLE 40 MG TABLET PO SCH (18:21)
[2019-04-20] MEDS: DOCUSATE SODIUM 100 MG CAPSULE PO SCH ×2 (18:21→21:30)
[2019-04-20] MEDS: ASPIRIN EC 81 MG TABLET PO SCH (18:21)
[2019-04-20] MEDS: METOPROLOL TARTRATE 25 MG TABLET PO SCH ×2 (18:21→21:31)
[2019-04-20 18:49] LABS: Apearance,Urine CLEAR (Clear); Bacteria,Urine Occasional /HPF (Few); Bilirubin,Urine Negative (Negative); Blood, Urine Large mg/dL (Negative); Glucose,Urine (UA) 50 mg/dL (Negative); Ketones,Urine 5 mg/dL (Negative); Mucus,Urine Occasional /LPF (Occasional); Nitrite,Urine Negative (Negative); Protein,Urine Negative; RBC,Urine 140 /HPF (0-4); Squamous Epithelial Cell,Urine Occasional /HPF (0-10); Urine Color Yellow (Yellow); Urine Specific Gravity 1.016 (1.001-1.035); Urine Urobilinogen < 2.0 EU/DL (0.2-1.0); WBC,Urine 9 /HPF (0-6)
[2019-04-20 18:55] LABS: ABG HCO3 19.5 MMOL/L (20-26); ABG PCO2 29.1 MM HG (35-48); ABG PH 7.395 (7.35-7.45); ABG TCO2 16.1 MMOL/L (23-27); Allen Test Positive; Pt O2 Delivery Device Ventilator
[2019-04-20 19:24] LABS: Basophils % 0.1 % (0.0-0.8); Eosinophils % 0.1 % (0.00-10.9); Hematocrit 31.2 VOL% (42.0-52.0); Hemoglobin 9.2 GM/DL (14.0-18.0); Immature Granulocytes % 0.6 %; Immature Granulocytes Absolute 0.08 #; Lymphocytes % 7.5 % (21.2-54.2); Mean Corpuscular HGB Conc 29.5 GM/DL (32-36); Mean Corpuscular Volume 103.7 FL (87-102); Mean Platelet Volume 12.5 FL (9.6-12.0); Monocytes % 5.5 % (1.7-12.7); NRBC # 0.04 10*3/uL; Neutrophils % 86.2 % (38.7-73.9); Red Blood Count 3.01 MC/CUMM (3.8-5.5); Red Cell Distribution Width 16.1 % (9.3-17.3); White Blood Count 13.2 T/CUMM (4-12)
[2019-04-20 19:35] LABS: Albumin 1.4 G/DL (3.4-5.0); Bilirubin,Total 0.9 MG/DL (0.2-1.0); Calcium 6.8 MG/DL (8.5-10.1); Osmolality,Calculated 320.4 MOS/KG (273-304); Total Protein 4.1 G/DL (6.4-8.3)
[2019-04-20 19:59] LABS: Platelet Estimate Decreased
[2019-04-20 20:01] LABS: Platelet Count 30 T/CUMM (130-400)
[2019-04-20] MEDS ORDERED: PROPOFOL 1,000 MG/100 ML BOTTLE IV SCH (20:30)
[2019-04-20] MEDS: NOREPINEPHRINE 8 MG in SODIUM CHLORIDE 0.9% 242 ML IV PRN (20:57)
[2019-04-20] MEDS: ATORVASTATIN 80 MG TABLET PO SCH (21:31)
[2019-04-21] MEDS: PIPERACILLIN/TAZOBACTAM 3,375 MG in SODIUM CHLORIDE 0.9% 100 ML IV SCH ×3 (00:20→20:48)
[2019-04-21 02:13] LABS: Basophils # 0.1 10*3/uL (0.0-0.2); Basophils % 0.2 % (0.0-0.8); Eosinophils % 0.1 % (0.00-10.9); Hematocrit 30.8 VOL% (42.0-52.0); Hemoglobin 10.3 GM/DL (14.0-18.0); Immature Granulocytes % 0.5 %; Immature Granulocytes Absolute 0.11 #; Lymphocytes # 1.4 10*3/uL (1.4-4.0); Lymphocytes % 6.1 % (21.2-54.2); Mean Corpuscular HGB Conc 33.4 GM/DL (32-36); Mean Corpuscular Volume 91.9 FL (87-102); Mean Platelet Volume 11.4 FL (9.6-12.0); Monocytes % 6.3 % (1.7-12.7); Neutrophils % 86.8 % (38.7-73.9); Platelet Count 117 T/CUMM (130-400); Red Blood Count 3.35 MC/CUMM (3.8-5.5); Red Cell Distribution Width 16.1 % (9.3-17.3); White Blood Count 22.2 T/CUMM (4-12)
[2019-04-21 02:44] LABS: Albumin 1.8 G/DL (3.4-5.0); Bilirubin,Total 0.7 MG/DL (0.2-1.0); Calcium 6.6 MG/DL (8.5-10.1); Total Protein 4.2 G/DL (6.4-8.3)
[2019-04-21 03:15] LABS: Lymphocytes 4 % (20-55); Segmented Neutrophils 93 % (50-85); Total Cells Counted 100
[2019-04-21 03:16] LABS: Microcytosis Slight
[2019-04-21 03:17] LABS: Polychromasia Few
[2019-04-21 03:29] LABS: Anisocytosis Slight
[2019-04-21 03:36] LABS: Platelet Estimate Adequate
[2019-04-21 03:37] LABS: ABG Base Excess -5.1 MMOL/L (-2.5-2.5); ABG HCO3 20.3 MMOL/L (20-26); ABG Oxygen Saturation 99.8 % (95-100); ABG PCO2 30.5 MM HG (35-48); ABG PH 7.397 (7.35-7.45); Allen Test Positive; Pt O2 Delivery Device Ventilator
[2019-04-21] MEDS: ALBUTEROL/IPRATROPIUM 3 ML NEB RESP TX SCH ×5 (03:42→20:51)
[2019-04-21] MEDS: SODIUM CHLORIDE 0.45% 1,000 ML IV SCH ×4 (04:20→23:22)
[2019-04-21 07:36] LABS: Hematocrit 34.9 VOL% (42.0-52.0); Hemoglobin 11.2 GM/DL (14.0-18.0)
[2019-04-21] MEDS ORDERED: PANTOPRAZOLE 40 MG VIAL IV SCH (09:00)
[2019-04-21] MEDS ORDERED: PANTOPRAZOLE 40 MG VIAL IV ONE (09:11)
[2019-04-21] MEDS: ASPIRIN EC 81 MG TABLET PO SCH (09:25)
[2019-04-21] MEDS: DOCUSATE SODIUM 100 MG CAPSULE PO SCH ×2 (09:25→21:06)
[2019-04-21] MEDS: VANCOMYCIN INJ 750 MG in SODIUM CHLORIDE 0.9% 250 ML IV SCH (09:28)
[2019-04-21] MEDS ORDERED: PANTOPRAZOLE INJ 80 MG in SODIUM CHLORIDE 0.9% 100 ML IV ONE (09:39)
[2019-04-21] MEDS: PANTOPRAZOLE 40 MG TABLET PO SCH (09:40)
[2019-04-21] MEDS: METOPROLOL TARTRATE 25 MG TABLET PO SCH ×2 (09:40→21:06)
[2019-04-21] MEDS ORDERED: PANTOPRAZOLE INJ 200 MG in SODIUM CHLORIDE 0.9% 250 ML IV SCH (10:00)
[2019-04-21] MEDS: INSULIN LISPRO 100 UNIT/ML SUBCUT SCH ×3 (10:01→18:37)
[2019-04-21 12:45] LABS: Hematocrit 28.4 VOL% (42.0-52.0); Hemoglobin 9.2 GM/DL (14.0-18.0)
[2019-04-21] MEDS: PANTOPRAZOLE INJ 200 MG in SODIUM CHLORIDE 0.9% 250 ML IV SCH (13:45)
[2019-04-21] MEDS ORDERED: FUROSEMIDE 40 MG/4 ML VIAL IV ONE (17:57)
[2019-04-21] MEDS ORDERED: FUROSEMIDE 20 MG/2 ML VIAL ONE (18:11)
[2019-04-21 19:22] LABS: Hematocrit 32.7 VOL% (42.0-52.0); Hemoglobin 10.3 GM/DL (14.0-18.0)
[2019-04-21] MEDS: ATORVASTATIN 80 MG TABLET PO SCH (21:06)
[2019-04-22] MEDS: INSULIN LISPRO 100 UNIT/ML SUBCUT SCH ×4 (00:11→18:06)
[2019-04-22] MEDS: ALBUTEROL/IPRATROPIUM 3 ML NEB RESP TX SCH ×7 (00:34→19:43)
[2019-04-22] MEDS: PIPERACILLIN/TAZOBACTAM 3,375 MG in SODIUM CHLORIDE 0.9% 100 ML IV SCH ×3 (04:34→20:30)
[2019-04-22] MEDS: SODIUM CHLORIDE 0.45% 1,000 ML IV SCH ×3 (04:54→17:27)
[2019-04-22] MEDS: VANCOMYCIN INJ 750 MG in SODIUM CHLORIDE 0.9% 250 ML IV SCH (09:05)
[2019-04-22] MEDS: METOPROLOL TARTRATE 25 MG TABLET PO SCH ×2 (09:06→21:37)
[2019-04-22] MEDS: DOCUSATE SODIUM 100 MG CAPSULE PO SCH ×2 (09:06→21:37)
[2019-04-22 12:27] LABS: Basophils % 0.2 % (0.0-0.8); Eosinophils # 0.1 10*3/uL (0.0-0.87); Eosinophils % 0.7 % (0.00-10.9); Hematocrit 25.6 VOL% (42.0-52.0); Hemoglobin 8.2 GM/DL (14.0-18.0); Immature Granulocytes % 0.5 %; Immature Granulocytes Absolute 0.09 #; Lymphocytes # 0.6 10*3/uL (1.4-4.0); Lymphocytes % 3.3 % (21.2-54.2); Mean Corpuscular Volume 94.8 FL (87-102); Mean Platelet Volume 11.4 FL (9.6-12.0); Monocytes % 5.3 % (1.7-12.7); NRBC # 0.03 10*3/uL; Platelet Count 112 T/CUMM (130-400)
[2019-04-22 13:05] LABS: Eosinophils 1 % (0-10); Lymphocytes 7 % (20-55); Segmented Neutrophils 90 % (50-85); Total Cells Counted 100
[2019-04-22 13:06] LABS: Anisocytosis 1+; Burr Cells Few; Microcytosis Slight; Ovalocytes Slight; Platelet Estimate Adequate; Polychromasia Slight
[2019-04-22] MEDS: PANTOPRAZOLE INJ 200 MG in SODIUM CHLORIDE 0.9% 250 ML IV SCH (14:46)
[2019-04-22] MEDS: NOREPINEPHRINE 8 MG in SODIUM CHLORIDE 0.9% 242 ML IV PRN (15:17)
[2019-04-22 15:22] LABS: Hematocrit 24.4 VOL% (42.0-52.0); Hemoglobin 7.9 GM/DL (14.0-18.0)
[2019-04-22] MEDS ORDERED: FUROSEMIDE 40 MG/4 ML VIAL IV ONE (19:51)
[2019-04-22] MEDS: ATORVASTATIN 80 MG TABLET PO SCH (21:37)
[2019-04-23] MEDS: ALBUTEROL/IPRATROPIUM 3 ML NEB RESP TX SCH ×7 (00:06→23:53)
[2019-04-23] MEDS: INSULIN LISPRO 100 UNIT/ML SUBCUT SCH ×4 (00:28→17:43)
[2019-04-23] MEDS: SODIUM CHLORIDE 0.45% 1,000 ML IV SCH ×4 (01:05→20:58)
[2019-04-23 02:18] LABS: Hematocrit 33.8 VOL% (42.0-52.0); Hemoglobin 10.9 GM/DL (14.0-18.0)
[2019-04-23] MEDS: PIPERACILLIN/TAZOBACTAM 3,375 MG in SODIUM CHLORIDE 0.9% 100 ML IV SCH ×3 (04:33→20:04)
[2019-04-23 05:00] LABS: Basophils % 0.2 % (0.0-0.8); Eosinophils # 0.2 10*3/uL (0.0-0.87); Eosinophils % 1.3 % (0.00-10.9); Hematocrit 34.6 VOL% (42.0-52.0); Hemoglobin 11.1 GM/DL (14.0-18.0); Immature Granulocytes % 0.5 %; Immature Granulocytes Absolute 0.06 #; Lymphocytes # 0.5 10*3/uL (1.4-4.0); Lymphocytes % 3.8 % (21.2-54.2); Mean Corpuscular HGB Conc 32.1 GM/DL (32-36); Monocytes % 6.2 % (1.7-12.7); NRBC # 0.02 10*3/uL; Platelet Count 96 T/CUMM (130-400); Red Blood Count 3.68 MC/CUMM (3.8-5.5); Red Cell Distribution Width 15.9 % (9.3-17.3); White Blood Count 12.6 T/CUMM (4-12)
[2019-04-23 05:39] LABS: Calcium 7.1 MG/DL (8.5-10.1); Osmolality,Calculated 308.4 MOS/KG (273-304)
[2019-04-23 05:42] LABS: Eosinophils 2 % (0-10); Lymphocytes 3 % (20-55); Segmented Neutrophils 93 % (50-85); Total Cells Counted 100
[2019-04-23 05:43] LABS: Anisocytosis Slight; Microcytosis Slight
[2019-04-23 05:44] LABS: Polychromasia Few
[2019-04-23 05:46] LABS: Platelet Estimate Decreased
[2019-04-23 06:01] LABS: Hematocrit 33.7 VOL% (42.0-52.0)
[2019-04-23] MEDS: POTASSIUM CHLORIDE 20 MEQ/15 ML UDCUP PER TUBE PRN ×4 (10:38→16:40)
[2019-04-23] MEDS: METOPROLOL TARTRATE 25 MG TABLET PO SCH ×2 (10:47→20:45)
[2019-04-23] MEDS: DOCUSATE SODIUM 100 MG CAPSULE PO SCH ×2 (10:47→20:45)
[2019-04-23 14:14] LABS: Hemoglobin 10.9 GM/DL (14.0-18.0)
[2019-04-23] MEDS: VANCOMYCIN INJ 750 MG in SODIUM CHLORIDE 0.9% 250 ML IV SCH (14:55)
[2019-04-23] MEDS: PANTOPRAZOLE INJ 200 MG in SODIUM CHLORIDE 0.9% 250 ML IV SCH (15:47)
[2019-04-23] MEDS: ATORVASTATIN 80 MG TABLET PO SCH (20:45)
[2019-04-23 22:59] LABS: Hematocrit 32.5 VOL% (42.0-52.0); Hemoglobin 10.7 GM/DL (14.0-18.0)
[2019-04-24] MEDS: SODIUM CHLORIDE 0.45% 1,000 ML IV SCH ×2 (00:12→08:49)
[2019-04-24] MEDS: POTASSIUM CHLORIDE 20 MEQ/15 ML UDCUP PER TUBE PRN (00:22)
[2019-04-24] MEDS: INSULIN LISPRO 100 UNIT/ML SUBCUT SCH ×4 (00:22→18:27)
[2019-04-24] MEDS: ALBUTEROL/IPRATROPIUM 3 ML NEB RESP TX SCH ×6 (03:58→23:22)
[2019-04-24 04:17] LABS: Basophils % 0.2 % (0.0-0.8); Eosinophils # 0.2 10*3/uL (0.0-0.87); Eosinophils % 1.4 % (0.00-10.9); Hematocrit 34.5 VOL% (42.0-52.0); Hemoglobin 10.8 GM/DL (14.0-18.0); Immature Granulocytes % 0.7 %; Immature Granulocytes Absolute 0.09 #; Lymphocytes # 0.4 10*3/uL (1.4-4.0); Lymphocytes % 3.5 % (21.2-54.2); Mean Corpuscular HGB Conc 31.3 GM/DL (32-36); Mean Corpuscular Volume 96.4 FL (87-102); Mean Platelet Volume 11.5 FL (9.6-12.0); Monocytes % 7.2 % (1.7-12.7); NRBC # 0.03 10*3/uL; Platelet Count 91 T/CUMM (130-400); Red Blood Count 3.58 MC/CUMM (3.8-5.5); Red Cell Distribution Width 17.2 % (9.3-17.3); White Blood Count 12.2 T/CUMM (4-12)
[2019-04-24 04:41] LABS: Calcium 6.6 MG/DL (8.5-10.1); Osmolality,Calculated 302.3 MOS/KG (273-304)
[2019-04-24] MEDS: PIPERACILLIN/TAZOBACTAM 3,375 MG in SODIUM CHLORIDE 0.9% 100 ML IV SCH ×3 (05:35→20:58)
[2019-04-24 05:50] LABS: Hypochromasia Slight; Lymphocytes 6 % (20-55); Segmented Neutrophils 88 % (50-85); Total Cells Counted 100
[2019-04-24 05:51] LABS: Anisocytosis 1+; Microcytosis 1+; Ovalocytes Slight; Platelet Estimate Decreased; Polychromasia Slight
[2019-04-24] MEDS: POTASSIUM CHLORIDE RIDER 10 MEQ in PREMIX 1 EACH IV PRN ×2 (06:35→10:00)
[2019-04-24] MEDS: DOCUSATE SODIUM 100 MG CAPSULE PO SCH ×2 (08:49→20:52)
[2019-04-24] MEDS: VANCOMYCIN INJ 750 MG in SODIUM CHLORIDE 0.9% 250 ML IV SCH (08:50)
[2019-04-24] MEDS: METOPROLOL TARTRATE 25 MG TABLET PO SCH ×2 (08:50→20:52)
[2019-04-24] MEDS: PANTOPRAZOLE 40 MG TABLET PO SCH (20:52)
[2019-04-24] MEDS: ATORVASTATIN 80 MG TABLET PO SCH (20:53)
[2019-04-25] MEDS: INSULIN LISPRO 100 UNIT/ML SUBCUT SCH ×4 (01:51→19:11)
[2019-04-25] MEDS: ALBUTEROL/IPRATROPIUM 3 ML NEB RESP TX SCH ×6 (03:18→23:28)
[2019-04-25] MEDS: SODIUM CHLORIDE 0.45% 1,000 ML IV SCH ×3 (03:28→19:12)
[2019-04-25] MEDS: PIPERACILLIN/TAZOBACTAM 3,375 MG in SODIUM CHLORIDE 0.9% 100 ML IV SCH (03:58)
[2019-04-25 06:05] LABS: Basophils # 0.1 10*3/uL (0.0-0.2); Basophils % 0.4 % (0.0-0.8); Eosinophils # 0.2 10*3/uL (0.0-0.87); Eosinophils % 1.6 % (0.00-10.9); Hematocrit 35.9 VOL% (42.0-52.0); Hemoglobin 11.6 GM/DL (14.0-18.0); Immature Granulocytes % 0.5 %; Immature Granulocytes Absolute 0.07 #; Lymphocytes # 0.5 10*3/uL (1.4-4.0); Lymphocytes % 3.5 % (21.2-54.2); Mean Corpuscular HGB Conc 32.3 GM/DL (32-36); Mean Corpuscular Volume 95.7 FL (87-102); Mean Platelet Volume 10.8 FL (9.6-12.0); Monocytes % 7.5 % (1.7-12.7); Neutrophils % 86.5 % (38.7-73.9); Platelet Count 109 T/CUMM (130-400); Red Blood Count 3.75 MC/CUMM (3.8-5.5); Red Cell Distribution Width 17.5 % (9.3-17.3); White Blood Count 13.1 T/CUMM (4-12)
[2019-04-25 06:27] LABS: Calcium 7.3 MG/DL (8.5-10.1); Osmolality,Calculated 296.7 MOS/KG (273-304)
[2019-04-25 06:30] LABS: Band Neutrophils 1 % (0-10); Eosinophils 1 % (0-10); Lymphocytes 2 % (20-55); Segmented Neutrophils 89 % (50-85); Total Cells Counted 100
[2019-04-25 06:31] LABS: Anisocytosis 1+; Ovalocytes Few; Platelet Estimate Adequate
[2019-04-25] MEDS: PANTOPRAZOLE 40 MG TABLET PO SCH ×2 (09:21→22:36)
[2019-04-25] MEDS: METOPROLOL TARTRATE 25 MG TABLET PO SCH ×2 (09:21→22:36)
[2019-04-25] MEDS: DOCUSATE SODIUM 100 MG CAPSULE PO SCH ×2 (09:21→22:36)
[2019-04-25] MEDS: VANCOMYCIN INJ 750 MG in SODIUM CHLORIDE 0.9% 250 ML IV SCH (10:30)
[2019-04-25] MEDS: AMOXICILLIN 500 MG CAPSULE PO SCH (22:37)
[2019-04-25] MEDS: CLARITHROMYCIN 500 MG TABLET PO SCH (22:37)
[2019-04-26] MEDS: INSULIN LISPRO 100 UNIT/ML SUBCUT SCH ×4 (01:35→20:13)
[2019-04-26] MEDS: SODIUM CHLORIDE 0.45% 1,000 ML IV SCH ×4 (03:18→23:43)
[2019-04-26] MEDS: ALBUTEROL/IPRATROPIUM 3 ML NEB RESP TX SCH ×6 (03:25→23:23)
[2019-04-26] MEDS: METOPROLOL TARTRATE 25 MG TABLET PO SCH ×2 (10:14→21:18)
[2019-04-26] MEDS: PANTOPRAZOLE 40 MG TABLET PO SCH ×2 (10:20→21:18)
[2019-04-26] MEDS: AMOXICILLIN 500 MG CAPSULE PO SCH ×2 (10:21→21:17)
[2019-04-26] MEDS: DOCUSATE SODIUM 100 MG CAPSULE PO SCH ×2 (10:22→21:18)
[2019-04-26] MEDS: CLARITHROMYCIN 500 MG TABLET PO SCH ×2 (10:22→21:17)
[2019-04-27] MEDS: INSULIN LISPRO 100 UNIT/ML SUBCUT SCH ×4 (00:13→17:02)
[2019-04-27] MEDS: ALBUTEROL/IPRATROPIUM 3 ML NEB RESP TX SCH ×6 (03:02→23:45)
[2019-04-27] MEDS ORDERED: TUBERCULIN SKIN TEST 0.1 ML SYRINGE INTRADERM ONE (07:48)
[2019-04-27] MEDS: DOCUSATE SODIUM 100 MG CAPSULE PO SCH ×2 (09:15→21:30)
[2019-04-27] MEDS: PANTOPRAZOLE 40 MG TABLET PO SCH ×2 (09:15→21:30)
[2019-04-27] MEDS: CLARITHROMYCIN 500 MG TABLET PO SCH ×2 (09:15→21:30)
[2019-04-27] MEDS: METOPROLOL TARTRATE 25 MG TABLET PO SCH ×2 (09:15→21:30)
[2019-04-27] MEDS: AMOXICILLIN 500 MG CAPSULE PO SCH ×2 (09:15→21:30)
[2019-04-27 09:32] LABS: Basophils # 0.1 10*3/uL (0.0-0.2); Basophils % 0.4 % (0.0-0.8); Eosinophils # 0.2 10*3/uL (0.0-0.87); Eosinophils % 1.3 % (0.00-10.9); Hematocrit 35.9 VOL% (42.0-52.0); Hemoglobin 11.6 GM/DL (14.0-18.0); Immature Granulocytes % 0.4 %; Immature Granulocytes Absolute 0.06 #; Lymphocytes # 0.6 10*3/uL (1.4-4.0); Lymphocytes % 4.1 % (21.2-54.2); Mean Corpuscular HGB Conc 32.3 GM/DL (32-36); Mean Corpuscular Volume 95.5 FL (87-102); Mean Platelet Volume 10.3 FL (9.6-12.0); Monocytes % 4.6 % (1.7-12.7); Neutrophils % 89.2 % (38.7-73.9); Platelet Count 129 T/CUMM (130-400); Red Blood Count 3.76 MC/CUMM (3.8-5.5); Red Cell Distribution Width 17.2 % (9.3-17.3); White Blood Count 13.5 T/CUMM (4-12)
[2019-04-27 09:50] LABS: Eosinophils 1 % (0-10); Lymphocytes 4 % (20-55); Segmented Neutrophils 92 % (50-85); Total Cells Counted 100
[2019-04-27 09:51] LABS: Hypochromasia 1+; Platelet Estimate Normal
[2019-04-27 09:59] LABS: Albumin 1.6 G/DL (3.4-5.0); Bilirubin,Total 0.6 MG/DL (0.2-1.0); Calcium 7.3 MG/DL (8.5-10.1); Total Protein 4.6 G/DL (6.4-8.3)
[2019-04-27] MEDS: SODIUM CHLORIDE 0.45% 1,000 ML IV SCH ×2 (15:33→15:34)
[2019-04-27] MEDS: APIXABAN 5 MG TABLET PO SCH (21:31)
[2019-04-28] MEDS: INSULIN LISPRO 100 UNIT/ML SUBCUT SCH ×2 (01:22→05:58)
[2019-04-28] MEDS: ALBUTEROL/IPRATROPIUM 3 ML NEB RESP TX SCH ×2 (03:23→07:33)
[2019-04-28 07:48] VITALS: BP 130/67
[2019-04-28] MEDS: METOPROLOL TARTRATE 25 MG TABLET PO SCH (08:04)
[2019-04-28] MEDS: PANTOPRAZOLE 40 MG TABLET PO SCH (08:05)
[2019-04-28] MEDS: DOCUSATE SODIUM 100 MG CAPSULE PO SCH (08:05)
[2019-04-28] MEDS: AMOXICILLIN 500 MG CAPSULE PO SCH (08:05)
[2019-04-28] MEDS: APIXABAN 5 MG TABLET PO SCH (08:05)
[2019-04-28] MEDS: CLARITHROMYCIN 500 MG TABLET PO SCH (08:05)
[2019-04-28] MEDS: SODIUM CHLORIDE 0.45% 1,000 ML IV SCH (09:20)
[2019-05-04] MEDS ORDERED: APIXABAN 5 MG TABLET PO SCH (21:00)
== END 2019-04-28 12:14 | disposition swing bed (61) | DRG 811 ==
LOC: EDBD → EDUNIT# → N.ED 08:27 → N.EDINP 10:59 → N.CC 13:14 → N.5E 04-19 15:51 → N.CC 04-20 17:44 → N.2E 04-24 15:01 → N.5E 04-26 02:57
PROVIDERS: ADMIT Family Medicine; ATTEND Family Medicine

== ENCOUNTER 2019-05-11 13:25 | Inpatient (IN) ==
[2019-05-11] MEDS ORDERED: SODIUM CHLORIDE 0.9% 1,000 ML IV STA (13:55)
[2019-05-11 14:12] LABS: Albumin 1.7 G/DL (3.4-5.0); Bilirubin,Total 0.5 MG/DL (0.2-1.0); Calcium 7.5 MG/DL (8.5-10.1); Osmolality,Calculated 326.9 MOS/KG (273-304); Total Protein 4.5 G/DL (6.4-8.3)
[2019-05-11] MEDS ORDERED: PIPERACILLIN/TAZOBACTAM 3,375 MG in SODIUM CHLORIDE 0.9% 100 ML IV STA (14:43)
[2019-05-11 15:19] LABS: Basophils % 0.5 % (0.0-0.8); Eosinophils % 0.5 % (0.00-10.9); Hematocrit 22.5 VOL% (42.0-52.0); Hemoglobin 6.5 GM/DL (14.0-18.0); Immature Granulocytes % 0.2 %; Immature Granulocytes Absolute 0.02 #; Lymphocytes # 0.8 10*3/uL (1.4-4.0); Lymphocytes % 9.2 % (21.2-54.2); Mean Corpuscular HGB Conc 28.9 GM/DL (32-36); Mean Corpuscular Volume 106.1 FL (87-102); Mean Platelet Volume 11.4 FL (9.6-12.0); Monocytes % 6.3 % (1.7-12.7); NRBC # 0.02 10*3/uL; Neutrophils % 83.3 % (38.7-73.9); Platelet Count 278 T/CUMM (130-400); Red Blood Count 2.12 MC/CUMM (3.8-5.5); Red Cell Distribution Width 19.6 % (9.3-17.3); White Blood Count 8.4 T/CUMM (4-12)
[2019-05-11 15:33] LABS: Apearance,Urine Slightly Hazy (Clear); Bilirubin,Urine Negative (Negative); Blood, Urine Moderate mg/dL (Negative); Glucose,Urine (UA) Negative (Negative); Ketones,Urine Negative (Negative); Nitrite,Urine Negative (Negative); Protein,Urine Negative; RBC,Urine 41 /HPF (0-4); Squamous Epithelial Cell,Urine Occasional /HPF (0-10); Urine Color Yellow (Yellow); Urine Specific Gravity 1.016 (1.001-1.035); WBC,Urine 7 /HPF (0-6)
[2019-05-11 16:36] LABS: % Iron Saturation 55.3 % (18-50); Ferritin 45.1 ng/ml (26-388)
[2019-05-11 17:25] LABS: Folate 18.5 NG/ML (5.4-24.0)
[2019-05-11] MEDS ORDERED: SODIUM CHLORIDE 0.9% 1,000 ML IV PRN (17:31)
[2019-05-11] MEDS ORDERED: ACETAMINOPHEN 325 MG TABLET PO PRN (17:31)
[2019-05-11] MEDS ORDERED: ONDANSETRON 4 MG/2 ML VIAL IV PRN (17:31)
[2019-05-11] MEDS ORDERED: DEXTROSE 50% 25 GM/50 ML VIAL IV PRN (17:31)
[2019-05-11] MEDS ORDERED: GLUCAGON 1 MG VIAL IM PRN (17:31)
[2019-05-11] MEDS: SODIUM CHLORIDE 0.9% 1,000 ML IV SCH (18:46)
[2019-05-11] MEDS: ALBUTEROL/IPRATROPIUM 3 ML NEB RESP TX SCH ×2 (19:53→23:30)
[2019-05-11] MEDS: INSULIN LISPRO 100 UNIT/ML SUBCUT SCH (21:33)
[2019-05-11] MEDS: DOCUSATE SODIUM 100 MG CAPSULE PO SCH (21:33)
[2019-05-12] MEDS: PIPERACILLIN/TAZOBACTAM 3,375 MG in SODIUM CHLORIDE 0.9% 100 ML IV SCH ×3 (00:42→16:04)
[2019-05-12] MEDS: SODIUM CHLORIDE 0.9% 1,000 ML IV SCH ×4 (02:50→21:43)
[2019-05-12] MEDS: ALBUTEROL/IPRATROPIUM 3 ML NEB RESP TX SCH ×6 (03:36→23:11)
[2019-05-12 06:53] LABS: Basophils % 0.3 % (0.0-0.8); Eosinophils % 0.1 % (0.00-10.9); Hematocrit 22.9 VOL% (42.0-52.0); Hemoglobin 6.6 GM/DL (14.0-18.0); Immature Granulocytes % 0.4 %; Immature Granulocytes Absolute 0.04 #; Lymphocytes # 0.5 10*3/uL (1.4-4.0); Lymphocytes % 5.2 % (21.2-54.2); Mean Corpuscular HGB Conc 28.8 GM/DL (32-36); Mean Platelet Volume 11.4 FL (9.6-12.0); NRBC # 0.02 10*3/uL; Platelet Count 241 T/CUMM (130-400); Red Blood Count 2.14 MC/CUMM (3.8-5.5); Red Cell Distribution Width 19.4 % (9.3-17.3); White Blood Count 9.3 T/CUMM (4-12)
[2019-05-12 07:13] LABS: Platelet Estimate Normal
[2019-05-12 07:14] LABS: Polychromasia Few
[2019-05-12] MEDS: INSULIN LISPRO 100 UNIT/ML SUBCUT SCH ×4 (09:02→21:21)
[2019-05-12] MEDS: PANTOPRAZOLE 40 MG TABLET PO SCH (09:03)
[2019-05-12] MEDS: DOCUSATE SODIUM 100 MG CAPSULE PO SCH ×2 (09:03→21:23)
[2019-05-13] MEDS: PIPERACILLIN/TAZOBACTAM 3,375 MG in SODIUM CHLORIDE 0.9% 100 ML IV SCH ×2 (01:28→09:26)
[2019-05-13] MEDS: ALBUTEROL/IPRATROPIUM 3 ML NEB RESP TX SCH ×3 (03:18→12:14)
[2019-05-13] MEDS: SODIUM CHLORIDE 0.9% 1,000 ML IV SCH ×2 (06:02→12:14)
[2019-05-13 07:33] VITALS: BP 90/50
[2019-05-13] MEDS: INSULIN LISPRO 100 UNIT/ML SUBCUT SCH ×2 (09:25→12:14)
[2019-05-13] MEDS: DOCUSATE SODIUM 100 MG CAPSULE PO SCH (09:25)
[2019-05-13] MEDS: PANTOPRAZOLE 40 MG TABLET PO SCH (09:26)
== END 2019-05-13 10:55 | disposition expired | DRG 640 ==
LOC: EDUNIT# → EDBD → N.ED 13:25 → N.EDINP 15:31 → N.5E 16:56
PROVIDERS: ADMIT Family Medicine; ATTEND Family Medicine